=== PATIENT | female | born 1995 | race African-American/Black ===

== ENCOUNTER 2021-03-19 16:23 | Emergency (ER) | payer SELFPAY ==
[~2021-03-19] VITALS: Ht 160 cm; Wt 113.4 kg
[2021-03-19 17:05] LABS: INFLUENZAE A&B ANTIGEN (RAPID) NEGATIVE (NEGATIVE); STREPTOCOCCUS GRP A ANTIGEN NEGATIVE (NEGATIVE)
[2021-03-19] MEDS ORDERED: IBUPROFEN 600 MG TAB PO STA (17:48)
[2021-03-19] MEDS ORDERED: ALLEGRA ALLERGY60 MG PO (17:51)
[2021-03-19] MEDS ORDERED: IBUPROFEN600 MG PO (17:51)
[2021-03-19] MEDS ORDERED: PREDNISONE50 MG PO (17:51)
[2021-03-19] MEDS ORDERED: PREDNISONE 20 MG TAB PO ONE (18:00)
[2021-03-19 18:04] VITALS: BP 117/93
== END 2021-03-19 18:05 | disposition home or self-care (01) ==
LOC: ER 17:35
DX: R50.9 Fever, unspecified (principal); J06.9 Acute upper respiratory infection, unspecified; R05 Cough; Z20.822 Contact with and (suspected) exposure to COVID-19
CPT/HCPCS: 83518; 87070; 87400; 99283; J7512; U0002